=== PATIENT | female | born 2000 | race Caucasian/White ===

== ENCOUNTER 2022-12-13 13:14 | Emergency (ER) | payer MEDICARE, MEDICAID, SELFPAY ==
[2022-12-13 13:27] VITALS: BP 122/61; PULSE 82; RESP 16; TEMP 37.1; O2SAT 98
--- NOTE | 2022-12-13 14:02 | ED.SKABFB ---
HPI - Skin/Abscess/Foreign Bdy General Chief complaint: Skin/Abscess/Foreign Body Stated complaint: Sore on right thigh and butt Time Seen by Provider: 12/13/22 14:02 Source: patient, RN notes reviewed and old records reviewed Mode of arrival: ambulatory Limitations: no limitations History of Present Illness HPI narrative: 22 year old female with downs syndrome accompanied by father and step mother presents to express care with complaints of rash to buttock and right thigh boil. Father reports that he received report from mother that child has boil on right thigh and rash on buttocks, he has not seen daughter for the past 6 weeks since she has been with mother. Band-aid removed from right thigh with small white pustule noted, fine red raised areas of rash noted on buttock no pustular formation in rash. MD complaint: rash Onset (ago): day(s) Location: buttocks Treatments prior to arrival: other (prid to right thigh) Related Data Home Medications Medication Instructions Recorded Confirmed buspirone 10 mg tablet 5 mg PO DAILY 12/13/22 12/13/22 levothyroxine 75 mcg tablet 75 mcg PO DAILY 12/13/22 12/13/22 lorazepam 1 mg tablet 1 mg PO TID 12/13/22 12/13/22 norgestimate 0.25 mg-ethinyl 1 tablet PO DAILY 12/13/22 12/13/22 estradiol 35 mcg tablet (Grace) olanzapine 2.5 mg tablet 2.5 mg PO HS 12/13/22 12/13/22 polyethylene glycol 3350 17 17 g PO BID PRN Constipation 12/13/22 12/13/22 gram/dose oral powder sennosides 15 mg tablet (Perdiem 15 mg PO BID 12/13/22 12/13/22 Overnight Relief) sertraline 100 mg tablet 150 mg PO DAILY 12/13/22 12/13/22 Allergies Allergy/AdvReac Type Severity Reaction Status Date / Time No Known Allergies Allergy Verified 12/13/22 14:08 Review of Systems Review of Systems: CONSTITUTIONAL: Denies fever, chills, or sweats. CARDIOVASCULAR: Denies chest pain, palpitations, or edema. RESPIRATORY: Denies cough or dyspnea. SKIN: Reports boil right thigh and rash to buttock MUSCULOSKELETAL: Denies joint pain or myalgia. NEUROLOGIC: Denies headache, numbness, or weakness.patient has Down's syndrome All systems reviewed & are unremarkable except as noted in HPI and below PMFSH Past Medical History Medical History (Updated 12/15/22 @ 07:55 by Samra Kwon NP) Anxiety and depression Down's syndrome Hypothyroid Social History Social History (Updated 12/15/22 @ 07:55 by Samra Kwon NP) Living arrangements: with family Gender identity (if verbalized by the patient): Female Comments At time of signature, agree with nursing past medical, surgical, social and family history. There is no relevant family history pertinent to the presenting complaint Exam Narrative: GENERAL: Well-appearing, well-nourished, and in no acute distress. HEAD: Normocephalic, atraumatic. EYES: PERRLA, conjunctivae clear, and EOMI. ENT: Mucous membranes moist. Oropharynx without edema, erythema or lesions. NECK: Supple. No lymphadenopathy CHEST: Clear to auscultation. No respiratory distress. HEART: Regular rate and rhythm. SKIN: Warm, dry.? Patches of small red raised rash to buttock small pustule to right hip area no drainage from areas, patient does not appear to be in any discomfort NEURO:? Alert and oriented x3. patient has Down's syndrome able to follow directions to assist in examination PSYCH: Normal mood and affect, is cheerful Course Course Emergency Course: Patient is aware of diagnosis, understands and agrees to treatment plan.? Anticipatory guidance given.? Patient agrees to follow-up as directed and is aware of reasons to seek care at the emergency department. Portions of this record may have been created with voice recognition software Level of Care: Express Care Visit Vital Signs Vital signs: Vital Signs Temperature 37.1 C 12/13/22 13:27 Pulse Rate 82 12/13/22 13:27 Respiratory Rate 16 12/13/22 13:27 Blood Pressure 122/61 12/13/22 13:27 Pulse Oximetry
== END 2022-12-13 14:13 | disposition home or self-care (01) ==
PROVIDERS: Emergency Provider Registered Nurse; PCP Family Medicine
DX: L74.0 Miliaria rubra (principal); Q90.9 Down syndrome, unspecified; E03.9 Hypothyroidism, unspecified; F41.9 Anxiety disorder, unspecified; F32.A Depression, unspecified
CPT/HCPCS: 99203; G0463

== ENCOUNTER 2024-05-29 14:12 | Emergency (ER) | payer MEDICARE, MEDICAID, SELFPAY ==
[2024-05-29 14:22] VITALS: BP 117/56; PULSE 72; RESP 20; TEMP 37; O2SAT 100
--- NOTE | 2024-05-29 14:32 | ED.SKABFB ---
HPI - Skin/Abscess/Foreign Bdy General Chief complaint: Skin/Abscess/Foreign Body Stated complaint: SPOT ON LEG History of Present Illness HPI narrative: Patient brought in by parents for evaluation of a rash. Child is down syndrome but does voice no pain or discomfort and rash does not itch. Parents states the rash has been there for quite some time red and splotchy. No drainage from rash no streaking no fever have not applied anything to the area. Related Data Home Medications Medication Instructions Recorded Confirmed buspirone 10 mg tablet 5 mg PO DAILY 12/13/22 12/13/22 levothyroxine 75 mcg tablet 75 mcg PO DAILY 12/13/22 12/13/22 lorazepam 1 mg tablet 1 mg PO TID 12/13/22 12/13/22 norgestimate 0.25 mg-ethinyl 1 tablet PO DAILY 12/13/22 12/13/22 estradiol 35 mcg tablet (Grace) olanzapine 2.5 mg tablet 2.5 mg PO HS 12/13/22 12/13/22 polyethylene glycol 3350 17 17 g PO BID PRN Constipation 12/13/22 12/13/22 gram/dose oral powder sennosides 15 mg tablet (Perdiem 15 mg PO BID 12/13/22 12/13/22 Overnight Relief) sertraline 100 mg tablet 150 mg PO DAILY 12/13/22 12/13/22 Allergies Allergy/AdvReac Type Severity Reaction Status Date / Time No Known Allergies Allergy Verified 12/13/22 14:08 Review of Systems Review of Systems: CONSTITUTIONAL: Denies fever, chills, or sweats. EYES: Denies visual changes, redness, or discharge. ENT: Denies rhinorrhea, congestion, sore throat, or otalgia. CARDIOVASCULAR: Denies chest pain, palpitations, or edema. RESPIRATORY: Denies cough or dyspnea. GASTROINTESTINAL: Denies abdominal pain, nausea, vomiting, or diarrhea. GENITOURINARY: Denies dysuria or hematuria. SKIN: Denies rash or itching. MUSCULOSKELETAL: Denies back pain, joint pain, or myalgia. NEUROLOGIC: Denies headache, numbness, or weakness. PSYCHIATRIC: Denies anxiety or depression. [facility] Past Medical History Medical History (Updated 05/29/24 @ 14:34 by MARILU Campbell) Anxiety and depression Down's syndrome Hypothyroid Social History Social History (Updated 12/15/22 @ 07:55 by Samra Kwon NP) Living arrangements: with family Gender identity (if verbalized by the patient): Female Comments At time of signature, agree with nursing past medical, surgical, social and family history. There is no relevant family history pertinent to the presenting complaint Exam Narrative: GENERAL: Well-appearing, well-nourished, and in no acute distress. HEAD: Normocephalic, atraumatic. EYES: PERRLA and EOMI. ENT: Nares clear, no rhinorrhea or epistaxis. Mucous membranes moist. NECK: Supple. CHEST: Clear to auscultation. No respiratory distress. HEART: Regular rate and rhythm. No murmur heard. Normal peripheral pulses. ABDOMEN: Soft, nontender, nondistended, normal active bowel sounds. EXTREMITIES: Normal range of motion. No edema. SKIN: Warm, dry, no rash. Dry flaky rash, splotchy with areas of excoriation to groin area consistent with [place]vvienne rash NEURO: No focal deficits. Alert and oriented x3. [place] Coma Scale Eye Opening: Spontaneous 4 [place] Coma Scale Motor: Obeys Commands 6 [place] Coma Scale Verbal: Oriented 5 [place] Coma Scale Total 15 Course Course Level of Care: Express Care Visit Vital Signs Vital signs: Vital Signs Temperature 37.0 C 05/29/24 14:22 Pulse Rate 72 05/29/24 14:22 Respiratory Rate 05/29/24 14:22 Blood Pressure 117/56 L 05/29/24 14:22 Pulse Oximetry 100 05/29/24 14:22 Oxygen Delivery Room Air 05/29/24 14:22 Temperature 37.0 C 05/29/24 14:22 Pulse Rate 72 05/29/24 14:22 Respiratory Rate 05/29/24 14:22 Blood Pressure 117/56 L 05/29/24 14:22 Pulse Oximetry 100 05/29/24 14:22 Oxygen Delivery Room Air 05/29/24 14:22 Discharge Plan Discharge Clinical Impression: Vivienne infection Patient Disposition: Home, Self-Care Condition: Stable Instructions: Skin Yeast Infection (ED) Additional Instr
== END 2024-05-29 14:43 | disposition home or self-care (01) ==
PROVIDERS: Emergency Provider Nurse Practitioner Family
DX: B37.2 Candidiasis of skin and nail (principal); Q90.9 Down syndrome, unspecified; E03.9 Hypothyroidism, unspecified; F41.9 Anxiety disorder, unspecified; F32.A Depression, unspecified
CPT/HCPCS: 99213; G0463